=== PATIENT | female | born 1990 ===

== ENCOUNTER 2025-02-01 06:18 | Day surgery (SDC) | payer OTHER ==
[2025-02-01] MEDS ORDERED: DIPHENHYDRAMINE HCL 50 MG/ML VIAL 1ML IV ONE (09:30)
[2025-02-01] MEDS ORDERED: MIDAZOLAM HCL 2 MG/2 ML VIAL IV ONE (09:30)
[2025-02-01] MEDS ORDERED: fentaNYL CITRATE 50 MCG/ML AMPUL IV PUSH ONE (09:30)
[2025-02-01] MEDS ORDERED: ONDANSETRON HCL 2 MG/ML VIAL IV SCH (09:30)
== END 2025-02-01 11:05 | disposition home or self-care (01) ==
LOC: AMB-ENDOS 06:18
PROVIDERS: ATTEND Colon & Rectal Surgery
DX: K59.4 Anal spasm (principal); Z86.0101 Personal history of adenomatous and serrated colon polyps; K64.8 Other hemorrhoids